=== PATIENT | female | born 1995 | race African-American/Black ===

== ENCOUNTER 2021-07-08 21:11 | Emergency (ER) | payer SELFPAY | END 2021-07-08 22:20 | disposition home or self-care (01) | LOC: CSHERS 21:11 | DX: M43.6 Torticollis (principal) | CPT/HCPCS: 99283 ==

== ENCOUNTER 2021-08-12 15:02 | Emergency (ER) | payer SELFPAY | END 2021-08-12 19:12 | disposition home or self-care (01) | LOC: CSHERS 15:02 | DX: M25.561 Pain in right knee (principal); M25.461 Effusion, right knee; F17.210 Nicotine dependence, cigarettes, uncomplicated | CPT/HCPCS: 99283 ==

== ENCOUNTER 2025-08-01 07:00 | Emergency (ER) | payer OTHER | END 2025-08-01 08:40 | disposition home or self-care (01) | LOC: CSHERS 07:00 | DX: S81.852A Open bite, left lower leg, initial encounter (principal); W54.0XXA Bitten by dog, initial encounter; Z87.891 Personal history of nicotine dependence | CPT/HCPCS: 99283 ==